=== PATIENT | male | born 1970 | race African-American/Black ===

== ENCOUNTER 2016-09-30 00:01 | Emergency (ER) | payer MEDICAID, OTHER ==
[~2016-09-30] VITALS: Ht 170.2 cm; Wt 72.6 kg
[2016-09-30 01:20] VITALS: BP 136/68
== END 2016-09-30 01:21 | disposition home or self-care (01) ==
LOC: ER 00:02
DX: F41.9 Anxiety disorder, unspecified (principal); I10 Essential (primary) hypertension
CPT/HCPCS: 99283; A4606; Z7610

== ENCOUNTER 2016-10-25 22:14 | Emergency (ER) | payer OTHER ==
[~2016-10-25] VITALS: Ht 170.2 cm; Wt 63.5 kg
[2016-10-25 22:52] VITALS: BP 132/78
== END 2016-10-25 22:52 | disposition home or self-care (01) ==
LOC: ER 22:19
DX: F41.9 Anxiety disorder, unspecified (principal); G89.29 Other chronic pain; I10 Essential (primary) hypertension
CPT/HCPCS: 93005; 99283; A4606; Z7610

== ENCOUNTER 2017-06-28 02:31 | Emergency (ER) | payer OTHER ==
[~2017-06-28] VITALS: Ht 175.3 cm; Wt 56.7 kg
--- NOTE | 2017-06-28 02:45 | NUR ---
TO BED 8 A 46 YO MALE BIBSELF C/O HIGH BLOOD PRESSURE "BP 155/115" 2 HRS [employer]. UPON ARRIVAL TO ER, PATIENT IS AAOX4, AMBULATORY WITH STEADY GAIT. NOTED TO BE NSR AT 60-70 ON THE MONITOR. PLACED ON CARDIAC AND VS MONITORING. GOWNED.
[2017-06-28] MEDS ORDERED: CLONIDINE HCL 0.1 MG TABLET ONE (03:45)
--- NOTE | 2017-06-28 03:50 | NUR ---
MEDICATED PATIENT ORDERED BY DR CANSECO.
[2017-06-28 03:59] LABS: APPEARANCE,URINE CLEAR (CLEAR); BILIRUBIN,URINE NEGATIVE (NEGATIVE); BLOOD, URINE NEGATIVE Ery/uL (NEGATIVE); COLOR,URINE YELLOW (YELLOW); KETONES,URINE NEGATIVE (NEGATIVE); LEUKOCYTE ESTERASE ,URINE NEGATIVE (NEGATIVE); NITRITE, URINE NEGATIVE (NEGATIVE); PROTEIN,URINE NEGATIVE (NEGATIVE); UGLUCOSE NEGATIVE (NEGATIVE); UROBILINOGEN,URINE 0.2 EU/dL (0.2)
[2017-06-28] MEDS ORDERED: CLONIDINE HCL 0.1 MG TABLET PO ONE (04:00)
[2017-06-28 05:44] VITALS: BP 126/77
--- NOTE | 2017-06-28 05:44 | NUR ---
Patient discharged to home in stable condition. Written and verbal after care instructions given. Patient verbalizes understanding of instruction. Patient is ambulatory with steady gait, no further complaints.
== END 2017-06-28 05:45 | disposition home or self-care (01) ==
LOC: ER 02:34
DX: I10 Essential (primary) hypertension (principal); F41.9 Anxiety disorder, unspecified
CPT/HCPCS: 81001; 93005; 99285; A4606; Z7610; 81000-TC

== ENCOUNTER 2017-07-09 22:33 | Emergency (ER) | payer OTHER ==
[~2017-07-09] VITALS: Ht 170.2 cm; Wt 56.7 kg
--- NOTE | 2017-07-09 22:40 | NUR ---
To bed 5 a 46 yo male patient bb self and reports of "blood pressure 165/125 at home." Per patient he took clonidine 0.1mg 30mins prior to arrival. aaox4, ambulatory with steady gait, vss. nad noted. breathing even and unlabored. placed on vs monitor.
--- NOTE | 2017-07-09 22:42 | NUR ---
Dr Clayton at bedside to eval.
--- NOTE | 2017-07-09 23:09 | NUR ---
VSS. Patient discharged to home in stable condition. Written and verbal after care instructions given. Patient verbalizes understanding of instruction. Patient is ambulatory with steady gait, no further complaints.
[2017-07-09 23:10] VITALS: BP 154/70
== END 2017-07-09 23:10 | disposition home or self-care (01) ==
LOC: ER 22:33
DX: I10 Essential (primary) hypertension (principal); F41.9 Anxiety disorder, unspecified
CPT/HCPCS: 99283; A4606; Z7610

== ENCOUNTER 2018-03-16 09:19 | Emergency (ER) | payer OTHER ==
[~2018-03-16] VITALS: Ht 165.1 cm; Wt 64.0 kg
--- NOTE | 2018-03-16 09:29 | NUR ---
PT A/O X4. C/C L ARM PAIN 1-2 WEEKS. NEG ACUTE DISTRESS. VSS. NEG CP. STABLE GAIT. SAFETY MEASURES IN PLACE.
[2018-03-16] MEDS ORDERED: ASPIRIN 81 MG TAB.CHEW ONE (09:36)
--- NOTE | 2018-03-16 09:49 | NUR ---
XRAY AT BEDSIDE. PT REFUSED XRAY.
[2018-03-16 09:51] LABS: BASOPHILS # (AUTO) 0.1 /CMM (0.0-0.2); EOSINOPHILS % (AUTO) 2.6 % (0.0-6.0); HEMATOCRIT 50 % (39-51); HEMOGLOBIN 17.3 g/dL (13.5-17.5); LYMPHOCYTES # (AUTO) 1.7 /CMM (0.8-4.8); LYMPHOCYTES % (AUTO) 39.7 % (20.0-44.0); MEAN CORPUSCULAR HGB CONC 34 g/dl (31.0-36.0); MEAN CORPUSCULAR VOLUME 91 fL (80-96); MONOCYTES # (AUTO) 0.2 /CMM (0.1-1.30); MONOCYTES % (AUTO) 5.4 % (2.0-12.0); NEUTROPHILS # (AUTO) 2.2 /CMM (1.8-8.9); NEUTROPHILS % (AUTO) 50.3 % (43.0-81.0); PLATELET COUNT (AUTO) 248 /CMM (150-450); RED BLOOD CELL COUNT(AUTO) 5.51 MIL/uL (4.5-6.0); WHITE BLOOD COUNT (AUTO) 4.3 K/uL (4.3-11.0)
[2018-03-16] MEDS ORDERED: ASPIRIN 81 MG TAB.CHEW PO ONE (10:00)
[2018-03-16 10:01] LABS: CALCIUM, SERUM 8.9 mg/dL (8.5-10.1); CARBON DIOXIDE 32 mmol/L (21-32); CHLORIDE 105 mmol/L (98-107); CREATININE 1.1 mg/dL (0.6-1.3); GLUCOSE 125 mg/dL (74-106); POTASSIUM 4.1 mmol/L (3.5-5.1); SODIUM SERUM 138 mmol/L (136-145); UREA NITROGEN, BLOOD 12 mg/dL (7-18)
[2018-03-16 10:05] LABS: INR 1.02 (0.85-1.15)
[2018-03-16 10:06] LABS: ALANINE AMINOTRANSFERASE 24 U/L (12-78); ALBUMIN 3.7 g/dL (3.4-5.0); ALKALINE PHOSPHATASE 58 U/L (46-116); ASPARTATE AMINOTRANSFERASE 21 U/L (15-37); BILIRUBIN,DIRECT 0.2 mg/dL (0.0-0.2); BILIRUBIN,TOTAL 1.5 mg/dL (0.2-1.0); TOTAL PROTEIN, SERUM 7.7 g/dL (6.4-8.2)
[2018-03-16 10:08] LABS: TROPONIN I < 0.017 ng/mL (0.00-0.056)
--- NOTE | 2018-03-16 10:20 | NUR ---
IV removed. Catheter intact and site benign. Pressure and 4x4 applied to site. No bleeding noted.
[2018-03-16 10:26] VITALS: BP 141/88
--- NOTE | 2018-03-16 10:27 | NUR ---
Patient discharged to home in stable condition. Written and verbal after care instructions given. Patient verbalizes understanding of instruction.
== END 2018-03-16 10:27 | disposition home or self-care (01) ==
LOC: ER 09:26
DX: R07.89 Other chest pain (principal); I10 Essential (primary) hypertension; Z60.2 Problems related to living alone
CPT/HCPCS: 36415; 80048-TC; 80076-TC; 84484-TC; 85025-TC; 85730-TC; A4606; Z7610

== ENCOUNTER 2019-01-12 13:40 | Emergency (ER) | payer OTHER ==
[~2019-01-12] VITALS: Ht 172.7 cm; Wt 65.8 kg
--- NOTE | 2019-01-12 14:03 | NUR ---
patient presented to the ER c/p chest pain, sharp like, radiating to left shoulder. On room air, breathing evenly and unlabored, ambulatory with steady gait. Kept comfortable. will continue to monitor accordingly. Awaiting for MD for eval.
--- NOTE | 2019-01-12 14:22 | NUR ---
DR ESPINO AT BEDSIDE
[2019-01-12] MEDS ORDERED: IBUPROFEN 600 MG TABLET PO ONE ×2 (14:30→14:36)
[2019-01-12] MEDS ORDERED: ALPRAZOLAM 0.5 MG TABLET PO ONE (14:30)
[2019-01-12] MEDS ORDERED: ALPRAZOLAM 0.5 MG TABLET ONE (14:36)
--- NOTE | 2019-01-12 14:50 | NUR ---
Patient discharged to home in stable condition. Written and verbal after care instructions given. Patient verbalizes understanding of instruction.
[2019-01-12 15:50] VITALS: BP 142/89
== END 2019-01-12 14:50 | disposition home or self-care (01) ==
LOC: ER 13:42
DX: F41.9 Anxiety disorder, unspecified (principal); I10 Essential (primary) hypertension; R00.2 Palpitations; Z60.2 Problems related to living alone